=== PATIENT | male | born 1955 | race African-American/Black ===

== ENCOUNTER 2017-05-04 15:10 | Inpatient (IN) | payer MEDICAID, OTHER ==
[~2017-05-04] VITALS: Ht 172.7 cm; Wt 91.2 kg
[~2017-05-04 15:10] MED LIST: ASPI-1159 PO; FOLI1TAB87 PO; FURO40TA5 PO; GABA-290 PO; HUMALOG SUBCUT; HYDR-4009 PO; INSU3INS6 SUBCUT; LOSA50TA20 PO; PLAVIX PO; PREG75CA PO
[2017-05-04] MEDS ORDERED: INSULIN REGULAR (HUMULIN R) UD 100 UNITS/ML SYR SUBCUT ONE (15:30)
[2017-05-04] MEDS ORDERED: ACETAMINOPHEN 325MG TABLET PO STA (15:30)
[2017-05-04] MEDS ORDERED: LEVOFLOXACIN 750MG PREMIX 150 ML IV ONE (15:30)
[2017-05-04] MEDS ORDERED: SODIUM CHLORIDE 0.9% 1,000 ML IV ONE (15:30)
[2017-05-04] MEDS ORDERED: VANCOMYCIN 1 G PREMIX 200 ML IV ONE (15:30)
[2017-05-04] MEDS ORDERED: INSULIN REGULAR (HUMULIN R) 300UNITS/3ML SUBCUT ONE (16:30)
[2017-05-04 16:58] LABS: BG BASE EXCESS -7.9 mmol/L (-2.0-2.0); BG CARBOXYHEMOGLOBIN 0.1 % (0.5-1.5); BG DEOXYHEMOGLOBIN 7.2 % (0.0-5.0); BG HCO3 ACT 17.6 mmol/L (22.0-26.0); BG METHEMOGLOBIN 0.5 % (0.0-1.5); BG OXYGEN SATURATION 92.8 % (92.0-98.5); BG OXYHEMOGLOBIN 92.2 % (94.0-97.0); BG PH 7.308 (7.350-7.450); BG PO2 70.4 mmHg (75.0-100.0); BG SAMPLE SITE RIGHT BRACHIAL; BG TOTAL HEMOGLOBIN 10.6 g/dL (12.0-18.0); BG VENT MODE NASAL CANNULA
[2017-05-04 17:20] LABS: HEMATOCRIT. 30.8 % (42.0-52.0); HEMOGLOBIN. 9.7 g/dL (14.0-18.0); MEAN CORPUSCULAR HEMOGLOBIN 27.7 pg (28.0-32.0); MEAN PLATELET VOLUME 8.8 fl (7.4-10.4); PLATELET 317 x1000/uL (130-400); RED CELL DISTRIBUTION WIDTH 14.2 % (11.6-14.6)
[2017-05-04 17:25] LABS: CHLORIDE 94 mEq/L (98-107)
[2017-05-04 17:29] LABS: CARBON DIOXIDE 20 mEq/L (21-32)
[2017-05-04 17:36] LABS: BETA HYDROXYBUTYRATE 2.1 mMol/L (0.0-0.3); TROPONIN I 0.13 ng/mL (0.00-0.04)
[2017-05-04 17:39] LABS: PLATELET ESTIMATE NORMAL
[2017-05-04 17:40] LABS: INR 1.2; PARTIAL THROMBOPLASTIN TIME 33.6 sec (23.4-31.0); PROTHROMBIN TIME 12.1 sec (9.4-11.6)
[2017-05-04] MEDS ORDERED: ACETAMINOPHEN 650MG SUPP PR ONE (17:45)
[2017-05-04] MEDS ORDERED: INSULIN REGULAR (DRIP) 100 UNITS in SODIUM CHLORIDE 0.9% 100 ML IV ONE (18:30)
[2017-05-04] MEDS ORDERED: INSULIN REGULAR (DRIP) 100 UNITS in SODIUM CHLORIDE 0.9% 99 ML IV ONE (20:15)
[2017-05-04] MEDS ORDERED: VANCOMYCIN 1 G PREMIX 200 ML IV SCH (20:45)
[2017-05-04] MEDS ORDERED: PIPERACILLIN/TAZ 3.375G PREMIX 50 ML IV SCH (20:45)
[2017-05-04] MEDS ORDERED: ACETAMINOPHEN 650MG SUPP PR PRN (20:45)
[2017-05-04] MEDS ORDERED: ASPIRIN 300MG SUPP PR ONE (21:15)
[2017-05-04] MEDS ORDERED: DEXTROSE 50% WATER 50ML SYRINGE IV PRN ×2 (21:28→21:29)
[2017-05-04] MEDS ORDERED: HYDRALAZINE 20MG/ML VIAL IV PRN (21:29)
[2017-05-04 22:16] VITALS: BP 128/82
[2017-05-04] MEDS: BLOOD SUGAR DIAGNOSTIC STRIP TEST SCH ×2 (22:17→23:17)
[2017-05-04] MEDS ORDERED: DEXT 5%/0.45% NACL 500ML 500 ML IV ONE (22:18)
[2017-05-04] MEDS: MORPHINE SULFATE 4 MG/ML CPJ (NOT FOR IM USE) IV PRN (22:57)
[2017-05-04] MEDS: DIPHENHYDRAMINE 50MG/ML VIAL IV PRN (22:57)
[2017-05-04 23:00] VITALS: BP 122/67
[2017-05-04 23:15] VITALS: BP 114/57
[2017-05-04 23:30] VITALS: BP 107/59
[2017-05-04] MEDS ORDERED: INSULIN REGULAR (DRIP) 100 UNITS in SODIUM CHLORIDE 0.9% 100 ML IV SCH (23:30)
[2017-05-04 23:45] VITALS: BP 125/66
[2017-05-05] VITALS (82 sets, daily range): BP systolic 58–186; BP diastolic 25–116
[2017-05-05 00:05] LABS: TROPONIN I 0.19 ng/mL (0.00-0.04)
[2017-05-05] MEDS: BLOOD SUGAR DIAGNOSTIC STRIP TEST SCH ×11 (00:17→21:44)
[2017-05-05 06:20] LABS: CARBON DIOXIDE 21 mEq/L (21-32); CHLORIDE 101 mEq/L (98-107); CREATINE KINASE 543 IU/L (39-308); HEMATOCRIT. 28.9 % (42.0-52.0); HEMOGLOBIN. 9.5 g/dL (14.0-18.0); LDL CHOLESTEROL 36 mg/dL (5-100); MEAN CORPUSCULAR HEMOGLOBIN 28.2 pg (28.0-32.0); MEAN CORPUSCULAR VOLUME 85.4 fL (80.0-94.0); MEAN PLATELET VOLUME 8.8 fl (7.4-10.4); PLATELET 289 x1000/uL (130-400); RED BLOOD CELL COUNT 3.39 mill/uL (4.7-6.1); RED CELL DISTRIBUTION WIDTH 14.1 % (11.6-14.6); TROPONIN I 0.21 ng/mL (0.00-0.04)
[2017-05-05 06:24] LABS: HDL CHOLESTEROL 27 mg/dL (40-59)
[2017-05-05 08:55] LABS: PLATELET ESTIMATE NORMAL
[2017-05-05] MEDS: MORPHINE SULFATE 4 MG/ML CPJ (NOT FOR IM USE) IV PRN (09:32)
[2017-05-05] MEDS: DIPHENHYDRAMINE 50MG/ML VIAL IV PRN ×2 (09:37→18:16)
[2017-05-05] MEDS ORDERED: DEXTROSE 50% WATER 50ML SYRINGE IV PRN (10:15)
[2017-05-05] MEDS: HYDROCODONE/ACETAMINOPHEN 10/325MG TABLET PO PRN ×2 (11:32→18:08)
[2017-05-05] MEDS: ONDANSETRON HCL 4MG/2ML VIAL IV PRN (12:55)
[2017-05-05] MEDS: INSULIN LISPRO 100 UNITS/ML SUBCUT SCH ×3 (13:20→21:00)
[2017-05-05] MEDS: INSULIN DETEMIR UD 100 UNITS/ML SYR SUBCUT SCH ×2 (13:23→21:51)
[2017-05-05] MEDS ORDERED: ACETAMINOPHEN 325MG TABLET PO PRN (15:45)
[2017-05-05] MEDS: ACETAMINOPHEN 325MG TABLET PO PRN (16:15)
[2017-05-05] MEDS ORDERED: VANCOMYCIN 1 G PREMIX 200 ML IV NR (16:30)
[2017-05-06] VITALS (9 sets, daily range): BP systolic 106–179; BP diastolic 53–81
[2017-05-06] MEDS: HYDROCODONE/ACETAMINOPHEN 10/325MG TABLET PO PRN ×3 (00:15→13:25)
[2017-05-06] MEDS: MORPHINE SULFATE 4 MG/ML CPJ (NOT FOR IM USE) IV PRN ×2 (03:28→10:10)
[2017-05-06] MEDS: DIPHENHYDRAMINE 50MG/ML VIAL IV PRN ×2 (03:34→10:18)
[2017-05-06] MEDS: ACETAMINOPHEN 325MG TABLET PO PRN (05:51)
[2017-05-06 06:50] LABS: BASOPHILS % 0.8 % (0.0-2.0); EOSINOPHILS % 0.3 % (0.0-5.0); HEMATOCRIT. 30.8 % (42.0-52.0); LYMPHOCYTES % 8.2 % (20.0-50.0); MEAN CORPUSCULAR HEMOGLOBIN 27.7 pg (28.0-32.0); MEAN CORPUSCULAR VOLUME 85.7 fL (80.0-94.0); MONOCYTES % 6.8 % (2.0-8.0); NEUTROPHILS % 83.9 % (40.0-76.0); PLATELET 285 x1000/uL (130-400); RED CELL DISTRIBUTION WIDTH 14.3 % (11.6-14.6)
[2017-05-06] MEDS: BLOOD SUGAR DIAGNOSTIC STRIP TEST SCH ×4 (06:55→23:20)
[2017-05-06] MEDS: INSULIN LISPRO 100 UNITS/ML SUBCUT SCH ×4 (08:10→21:00)
[2017-05-06] MEDS: INSULIN DETEMIR UD 100 UNITS/ML SYR SUBCUT SCH ×2 (11:42→22:00)
[2017-05-06] MEDS ORDERED: AMIKACIN 500MG in SODIUM CHLORIDE 0.9% 100ML IV NR (12:00)
[2017-05-06] MEDS ORDERED: LEVOFLOXACIN 500MG PREMIX 100 ML IV SCH (18:00)
[2017-05-06] MEDS ORDERED: HEPARIN SODIUM 1,000 UNIT/1ML VIAL IV NR (19:00)
[2017-05-07] VITALS: BP 105/69
[2017-05-07 04:00] VITALS: BP 123/56
[2017-05-07] MEDS: HYDROCODONE/ACETAMINOPHEN 10/325MG TABLET PO PRN ×3 (04:35→16:40)
[2017-05-07] MEDS: DIPHENHYDRAMINE 50MG/ML VIAL IV PRN ×4 (04:36→20:28)
[2017-05-07 06:10] LABS: MEAN CORPUSCULAR HEMOGLOBIN 27.6 pg (28.0-32.0); PLATELET 270 x1000/uL (130-400); RED CELL DISTRIBUTION WIDTH 14.3 % (11.6-14.6)
[2017-05-07 08:00] VITALS: BP 123/48
[2017-05-07 08:06] LABS: PLATELET ESTIMATE NORMAL
[2017-05-07] MEDS: INSULIN LISPRO 100 UNITS/ML SUBCUT SCH ×4 (11:00→22:14)
[2017-05-07] MEDS: BLOOD SUGAR DIAGNOSTIC STRIP TEST SCH ×4 (11:00→22:14)
[2017-05-07] MEDS: INSULIN DETEMIR UD 100 UNITS/ML SYR SUBCUT SCH ×2 (11:27→22:14)
[2017-05-07 12:00] VITALS: BP 107/57
[2017-05-07] MEDS ORDERED: AMIKACIN 500MG in SODIUM CHLORIDE 0.9% 100ML IV NR (12:00)
[2017-05-07] MEDS: MORPHINE SULFATE 4 MG/ML CPJ (NOT FOR IM USE) IV PRN ×3 (15:07→20:29)
[2017-05-07 16:00] VITALS: BP 115/57
[2017-05-07] MEDS: CEFTRIAXONE 2 G PREMIX 50 ML IV SCH ×2 (18:00→20:32)
[2017-05-07] MEDS: VANCOMYCIN 1,750 MG in DEXT 5% WATER 500 ML IV NR ×2 (18:34→20:32)
[2017-05-07 20:00] VITALS: BP 132/53
[2017-05-08] VITALS: BP 120/64
[2017-05-08 04:00] VITALS: BP 124/58
[2017-05-08] MEDS: MORPHINE SULFATE 4 MG/ML CPJ (NOT FOR IM USE) IV PRN ×3 (07:09→20:25)
[2017-05-08] MEDS: DIPHENHYDRAMINE 50MG/ML VIAL IV PRN ×3 (07:09→20:25)
[2017-05-08] MEDS: BLOOD SUGAR DIAGNOSTIC STRIP TEST SCH ×4 (07:40→20:21)
[2017-05-08 08:00] VITALS: BP 116/59
[2017-05-08] MEDS: INSULIN LISPRO 100 UNITS/ML SUBCUT SCH ×4 (08:10→21:00)
[2017-05-08] MEDS: INSULIN DETEMIR UD 100 UNITS/ML SYR SUBCUT SCH ×2 (11:41→21:45)
[2017-05-08 12:00] VITALS: BP 143/82
[2017-05-08 13:50] LABS: HEMATOCRIT. 31.4 % (42.0-52.0); HEMOGLOBIN. 10.1 g/dL (14.0-18.0); MEAN CORPUSCULAR HEMOGLOBIN 27.1 pg (28.0-32.0); MEAN CORPUSCULAR VOLUME 84.8 fL (80.0-94.0); MEAN PLATELET VOLUME 8.4 fl (7.4-10.4); PLATELET 296 x1000/uL (130-400); RED BLOOD CELL COUNT 3.71 mill/uL (4.7-6.1); RED CELL DISTRIBUTION WIDTH 14.7 % (11.6-14.6)
[2017-05-08] MEDS: HYDROCODONE/ACETAMINOPHEN 10/325MG TABLET PO PRN (16:15)
[2017-05-08 16:55] LABS: PLATELET ESTIMATE NORMAL
[2017-05-08 20:00] VITALS: BP 172/67
[2017-05-09] MEDS: DIPHENHYDRAMINE 50MG/ML VIAL IV PRN (04:35)
[2017-05-09] MEDS: MORPHINE SULFATE 4 MG/ML CPJ (NOT FOR IM USE) IV PRN ×2 (04:35→21:34)
[2017-05-09] MEDS: BLOOD SUGAR DIAGNOSTIC STRIP TEST SCH ×4 (06:26→21:32)
[2017-05-09 08:09] LABS: BASOPHILS % 0.6 % (0.0-2.0); EOSINOPHILS % 0.7 % (0.0-5.0); HEMATOCRIT. 33.8 % (42.0-52.0); HEMOGLOBIN. 10.4 g/dL (14.0-18.0); LYMPHOCYTES % 7.2 % (20.0-50.0); MEAN CORPUSCULAR HEMOGLOBIN 27.1 pg (28.0-32.0); MEAN CORPUSCULAR VOLUME 88.1 fL (80.0-94.0); MEAN PLATELET VOLUME 9.8 fl (7.4-10.4); MONOCYTES % 6.9 % (2.0-8.0); NEUTROPHILS % 84.6 % (40.0-76.0); PLATELET 284 x1000/uL (130-400); RED BLOOD CELL COUNT 3.83 mill/uL (4.7-6.1); RED CELL DISTRIBUTION WIDTH 14.8 % (11.6-14.6)
[2017-05-09] MEDS: INSULIN LISPRO 100 UNITS/ML SUBCUT SCH ×4 (08:10→21:00)
[2017-05-09] MEDS: INSULIN DETEMIR UD 100 UNITS/ML SYR SUBCUT SCH ×2 (10:49→21:36)
[2017-05-09 12:00] VITALS: BP 151/77
[2017-05-09] MEDS: DIPHENHYDRAMINE 25MG CAPSULE PO PRN ×3 (12:06→21:32)
[2017-05-09] MEDS: HYDROCODONE/ACETAMINOPHEN 10/325MG TABLET PO PRN ×2 (12:11→17:33)
[2017-05-09] MEDS: GABAPENTIN 300MG CAPSULE PO SCH ×2 (14:51→21:33)
[2017-05-09 16:00] VITALS: BP 128/66
[2017-05-09] MEDS: CEFTRIAXONE 2 G in DEXTROSE 5% WATER 50 ML IV SCH (18:00)
[2017-05-09 20:00] VITALS: BP 152/65
[2017-05-09] MEDS ORDERED: MORPHINE SULFATE 10 MG/ML CPJ IM PRN (21:00)
[2017-05-10] VITALS: BP 153/71
[2017-05-10] MEDS: HYDROCODONE/ACETAMINOPHEN 10/325MG TABLET PO PRN ×4 (00:38→16:48)
[2017-05-10] MEDS: DIPHENHYDRAMINE 25MG CAPSULE PO PRN (01:49)
[2017-05-10] MEDS: MORPHINE SULFATE 10 MG/ML CPJ IM PRN ×2 (01:50→09:24)
[2017-05-10 04:00] VITALS: BP 150/68
[2017-05-10] MEDS: GABAPENTIN 300MG CAPSULE PO SCH ×3 (05:51→22:56)
[2017-05-10 06:37] LABS: BASOPHILS % 0.7 % (0.0-2.0); EOSINOPHILS % 1.2 % (0.0-5.0); HEMATOCRIT 30.7 % (42.0-52.0); HEMATOCRIT. 30.7 % (42.0-52.0); HEMOGLOBIN 9.7 g/dL (14.0-18.0); HEMOGLOBIN. 9.7 g/dL (14.0-18.0); LYMPHOCYTES % 9.7 % (20.0-50.0); MEAN CORPUSCULAR HEMOGLOBIN 27.5 pg (28.0-32.0); MEAN CORPUSCULAR VOLUME 87.1 fL (80.0-94.0); MEAN PLATELET VOLUME 8.5 fl (7.4-10.4); MONOCYTES % 7.7 % (2.0-8.0); NEUTROPHILS % 80.7 % (40.0-76.0); PLATELET 305 x1000/uL (130-400); RED BLOOD CELL COUNT 3.53 mill/uL (4.7-6.1); RED CELL DISTRIBUTION WIDTH 14.9 % (11.6-14.6)
[2017-05-10] MEDS: BLOOD SUGAR DIAGNOSTIC STRIP TEST SCH ×4 (07:25→21:11)
[2017-05-10] MEDS: INSULIN LISPRO 100 UNITS/ML SUBCUT SCH ×4 (07:33→21:00)
[2017-05-10 08:00] VITALS: BP 149/73
[2017-05-10] MEDS: INSULIN DETEMIR UD 100 UNITS/ML SYR SUBCUT SCH ×2 (09:25→22:00)
[2017-05-10] MEDS ORDERED: HYDROMORPHONE HCL/PF 2MG/ML CPJ IM PRN (10:53)
[2017-05-10 11:50] LABS: INR 1.2; PARTIAL THROMBOPLASTIN TIME 35.2 sec (23.4-31.0); PROTHROMBIN TIME 12.5 sec (9.4-11.6)
[2017-05-10 12:00] VITALS: BP 127/82
[2017-05-10] MEDS ORDERED: LIDOCAINE HCL 1% 20ML VIAL (Pyxis) INJ ONE (13:59)
[2017-05-10] MEDS ORDERED: SODIUM BICARBONATE 4% (2.4MEQ) 5ML VIAL IV ONE (13:59)
[2017-05-10] MEDS: CEFTRIAXONE 2 G in DEXTROSE 5% WATER 50 ML IV SCH (16:48)
[2017-05-10 20:00] VITALS: BP 112/49
[2017-05-10] MEDS: ACETAMINOPHEN 325MG TABLET PO PRN (20:11)
[2017-05-10] MEDS: HYDROMORPHONE HCL/PF 2MG/ML CPJ IV PRN (20:12)
[2017-05-11] VITALS: BP 120/61
[2017-05-11] MEDS: HYDROMORPHONE HCL/PF 2MG/ML CPJ IV PRN ×4 (02:14→20:43)
[2017-05-11 04:00] VITALS: BP 110/54
[2017-05-11] MEDS: GABAPENTIN 300MG CAPSULE PO SCH ×3 (06:08→22:21)
[2017-05-11] MEDS: HYDROCODONE/ACETAMINOPHEN 10/325MG TABLET PO PRN ×4 (06:09→23:55)
[2017-05-11] MEDS: DIPHENHYDRAMINE 50MG/ML VIAL IV PRN ×5 (06:13→23:58)
[2017-05-11] MEDS: BLOOD SUGAR DIAGNOSTIC STRIP TEST SCH ×4 (06:43→20:43)
[2017-05-11 08:00] VITALS: BP 154/63
[2017-05-11] MEDS: INSULIN LISPRO 100 UNITS/ML SUBCUT SCH ×4 (09:01→20:46)
[2017-05-11] MEDS: INSULIN DETEMIR UD 100 UNITS/ML SYR SUBCUT SCH ×2 (10:00→22:21)
[2017-05-11 12:00] VITALS: BP 161/57
[2017-05-11 16:00] VITALS: BP 121/67
[2017-05-11] MEDS: MEROPENEM IV SCH (19:27)
[2017-05-11] MEDS: SODIUM CHLORIDE 0.9% IV SCH (19:27)
[2017-05-11 20:00] VITALS: BP 135/74
[2017-05-12] VITALS: BP 150/67
[2017-05-12] MEDS: MEROPENEM IV SCH ×3 (01:21→18:36)
[2017-05-12] MEDS: SODIUM CHLORIDE 0.9% IV SCH ×3 (01:21→18:36)
[2017-05-12] MEDS: HYDROMORPHONE HCL/PF 2MG/ML CPJ IV PRN ×4 (01:43→21:21)
[2017-05-12 04:00] VITALS: BP 162/68
[2017-05-12] MEDS: HYDROCODONE/ACETAMINOPHEN 10/325MG TABLET PO PRN ×4 (04:48→22:56)
[2017-05-12] MEDS: DIPHENHYDRAMINE 25MG CAPSULE JT PRN (04:52)
[2017-05-12] MEDS: GABAPENTIN 300MG CAPSULE PO SCH ×3 (05:19→21:21)
[2017-05-12] MEDS: BLOOD SUGAR DIAGNOSTIC STRIP TEST SCH ×4 (07:12→21:20)
[2017-05-12] MEDS: INSULIN LISPRO 100 UNITS/ML SUBCUT SCH ×4 (07:12→21:30)
[2017-05-12 07:27] LABS: HEMOGLOBIN. 9.5 g/dL (14.0-18.0); MEAN CORPUSCULAR HEMOGLOBIN 27.8 pg (28.0-32.0); MEAN CORPUSCULAR VOLUME 85.3 fL (80.0-94.0); MEAN PLATELET VOLUME 8.5 fl (7.4-10.4); PLATELET 393 x1000/uL (130-400); RED CELL DISTRIBUTION WIDTH 15.3 % (11.6-14.6)
[2017-05-12 08:00] VITALS: BP 136/45
[2017-05-12] MEDS: DIPHENHYDRAMINE 50MG/ML VIAL IV PRN ×4 (08:03→22:56)
[2017-05-12] MEDS: INSULIN DETEMIR UD 100 UNITS/ML SYR SUBCUT SCH ×2 (10:53→21:30)
[2017-05-12 11:58] VITALS: BP 143/58
[2017-05-12 13:14] LABS: PLATELET ESTIMATE NORMAL
[2017-05-12 15:53] VITALS: BP 143/52
[2017-05-12 20:00] VITALS: BP 107/55
[2017-05-13] VITALS (7 sets, daily range): BP systolic 98–158; BP diastolic 48–69
[2017-05-13] MEDS: SODIUM CHLORIDE 0.9% IV SCH ×3 (02:26→18:00)
[2017-05-13] MEDS: MEROPENEM IV SCH ×3 (02:26→18:00)
[2017-05-13] MEDS: DIPHENHYDRAMINE 50MG/ML VIAL IV PRN ×3 (03:56→21:47)
[2017-05-13] MEDS: HYDROMORPHONE HCL/PF 2MG/ML CPJ IV PRN ×4 (03:56→21:47)
[2017-05-13] MEDS: GABAPENTIN 300MG CAPSULE PO SCH ×3 (05:54→21:41)
[2017-05-13] MEDS: BLOOD SUGAR DIAGNOSTIC STRIP TEST SCH ×4 (05:55→21:21)
[2017-05-13] MEDS: HYDROCODONE/ACETAMINOPHEN 10/325MG TABLET PO PRN ×2 (06:05→11:50)
[2017-05-13 06:40] LABS: BASOPHILS % 1.1 % (0.0-2.0); EOSINOPHILS % 1.4 % (0.0-5.0); HEMATOCRIT. 27.5 % (42.0-52.0); HEMOGLOBIN. 8.7 g/dL (14.0-18.0); LYMPHOCYTES % 9.2 % (20.0-50.0); MEAN CORPUSCULAR HEMOGLOBIN 27.1 pg (28.0-32.0); MEAN CORPUSCULAR VOLUME 86.2 fL (80.0-94.0); MEAN PLATELET VOLUME 8.4 fl (7.4-10.4); MONOCYTES % 5.5 % (2.0-8.0); NEUTROPHILS % 82.8 % (40.0-76.0); PLATELET 441 x1000/uL (130-400); RED BLOOD CELL COUNT 3.19 mill/uL (4.7-6.1)
[2017-05-13] MEDS: INSULIN LISPRO 100 UNITS/ML SUBCUT SCH ×4 (08:10→21:00)
[2017-05-13] MEDS: INSULIN DETEMIR UD 100 UNITS/ML SYR SUBCUT SCH ×2 (09:13→21:43)
[2017-05-13] MEDS: ACETAMINOPHEN 325MG TABLET PO PRN (09:16)
[2017-05-13] MEDS ORDERED: HYDR-4009 PO (12:05)
[2017-05-13] MEDS ORDERED: FURO40TA5 PO (12:05)
[2017-05-13] MEDS ORDERED: LOSA50TA20 PO (12:05)
[2017-05-13] MEDS ORDERED: CLOP75TA16 PO (12:05)
[2017-05-13] MEDS ORDERED: VANCOMYCIN 1 G PREMIX 200 ML IV SCH (21:00)
[2017-05-13] MEDS: ONDANSETRON HCL 4MG/2ML VIAL IV PRN (21:34)
[2017-05-14] VITALS (10 sets, daily range): BP systolic 92–152; BP diastolic 40–77
[2017-05-14] MEDS: HYDROCODONE/ACETAMINOPHEN 10/325MG TABLET PO PRN ×3 (00:35→20:44)
[2017-05-14] MEDS: SODIUM CHLORIDE 0.9% IV SCH ×3 (00:41→18:41)
[2017-05-14] MEDS: MEROPENEM IV SCH ×3 (00:41→18:41)
[2017-05-14] MEDS: DIPHENHYDRAMINE 50MG/ML VIAL IV PRN ×3 (05:22→19:05)
[2017-05-14] MEDS: HYDROMORPHONE HCL/PF 2MG/ML CPJ IV PRN ×4 (05:22→21:05)
[2017-05-14] MEDS: GABAPENTIN 300MG CAPSULE PO SCH ×2 (05:22→13:55)
[2017-05-14] MEDS: BLOOD SUGAR DIAGNOSTIC STRIP TEST SCH ×3 (05:23→18:32)
[2017-05-14] MEDS: INSULIN LISPRO 100 UNITS/ML SUBCUT SCH ×3 (08:10→18:47)
[2017-05-14] MEDS: INSULIN DETEMIR UD 100 UNITS/ML SYR SUBCUT SCH (09:17)
[2017-05-14] MEDS: DIPHENHYDRAMINE 25MG CAPSULE JT PRN (20:44)
[2017-05-15] MEDS ORDERED: ZINC SULFATE 220 MG ( 50 ) CAPSULE PO SCH (09:00)
[2017-05-15] MEDS ORDERED: FOLIC ACID/VITAMIN B COMP W-C TABLET PO SCH (09:00)
[2017-05-15] MEDS ORDERED: ASCORBIC ACID 250 MG TABLET PO SCH (09:00)
== END 2017-05-14 21:10 | disposition home health service (06) | DRG 720 ==
LOC: ER 15:22 → CVICU 19:50 → ENRESERV 19:52 → EDBEDREQ 20:14 → 7WST 05-06 02:24
PROVIDERS: ADMIT Internal Medicine; ATTEND Internal Medicine
PROC: 5A1D70Z Performance of Urinary Filtration, Intermittent, Less than 6 Hours Per Day (ICD-10-PCS; 2017-05-05)
PROC: 5A1D70Z Performance of Urinary Filtration, Intermittent, Less than 6 Hours Per Day (ICD-10-PCS; 2017-05-08)
PROC: 02HV33Z Insertion of Infusion Device into Superior Vena Cava, Percutaneous Approach (ICD-10-PCS; principal; 2017-05-10)
PROC: B548ZZA Ultrasonography of Superior Vena Cava, Guidance (ICD-10-PCS; 2017-05-10)
PROC: B5181ZA Fluoroscopy of Superior Vena Cava using Low Osmolar Contrast, Guidance (ICD-10-PCS; 2017-05-10)
PROC: 5A1D70Z Performance of Urinary Filtration, Intermittent, Less than 6 Hours Per Day (ICD-10-PCS; 2017-05-11)
PROC: 5A1D70Z Performance of Urinary Filtration, Intermittent, Less than 6 Hours Per Day (ICD-10-PCS; 2017-05-13)
DX: A41.51 Sepsis due to Escherichia coli [E. coli] (principal); E43 Unspecified severe protein-calorie malnutrition; G93.41 Metabolic encephalopathy; E11.10 Type 2 diabetes mellitus with ketoacidosis without coma; I12.0 Hypertensive chronic kidney disease with stage 5 chronic kidney disease or end stage renal disease; N18.6 End stage renal disease; M86.8X6 Other osteomyelitis, lower leg; E11.22 Type 2 diabetes mellitus with diabetic chronic kidney disease; I25.10 Atherosclerotic heart disease of native coronary artery without angina pectoris; E11.51 Type 2 diabetes mellitus with diabetic peripheral angiopathy without gangrene; D64.9 Anemia, unspecified; E11.69 Type 2 diabetes mellitus with other specified complication; L02.415 Cutaneous abscess of right lower limb; E87.6 Hypokalemia; F17.210 Nicotine dependence, cigarettes, uncomplicated; Z89.511 Acquired absence of right leg below knee; Z91.14 Patient's other noncompliance with medication regimen; Z91.19 Patient's noncompliance with other medical treatment and regimen; Z95.0 Presence of cardiac pacemaker; Z88.1 Allergy status to other antibiotic agents; Z88.0 Allergy status to penicillin; Z99.2 Dependence on renal dialysis; Z88.2 Allergy status to sulfonamides; Z68.30 Body mass index [BMI] 30.0-30.9, adult; Z88.8 Allergy status to other drugs, medicaments and biological substances; Z79.82 Long term (current) use of aspirin; Z79.4 Long term (current) use of insulin; Z79.899 Other long term (current) drug therapy; Z89.432 Acquired absence of left foot
CPT/HCPCS: 36415; 36569; 36600; 70450; 71010; 73700; 76770; 76937; 77001; 80048; 80053; 80061; 80150; 80202; 82010; 82375; 82550; 82805; 82962; 83605; 83690; 83735; 84443; 84484; 85025; 85027; 85610; 85730; 86850; 86900; 87040; 87070; 87077; 87186; 87205; 93005; 93306; 93970; 97163; 97166; 97530; 99285; A6261; C1725; C1893; J0278; J0360; J0696; J1170; J1200; J1644; J1815; J1956; J2185; J2270; J2405; J3370; J3490; J7030; J7040; J7050; J7060; Q0163; A4315